=== PATIENT | male | born 1995 ===

== ENCOUNTER 2023-02-21 20:11 | Emergency (ER) | payer OTHER ==
[2023-02-21] MEDS ORDERED: Ibuprofen 600 MG Tab PO ONE (20:47)
[2023-02-21] MEDS ORDERED: Oxymetazoline 0.05% Nasal Spray 30 ML Bottle NAS ONE (20:47)
[2023-02-21] MEDS ORDERED: Acetaminophen 325 MG Tab PO ONE (20:47)
[2023-02-21] MEDS ORDERED: Dexamethasone 4 MG Tab PO ONE (20:47)
== END 2023-02-21 21:14 | disposition home or self-care (01) ==
LOC: MW.ED 20:11
DX: H66.93 Otitis media, unspecified, bilateral (principal); Z88.0 Allergy status to penicillin
CPT/HCPCS: 99282; A9270; J8540; 99283

== ENCOUNTER 2023-03-12 20:39 | Emergency (ER) | payer OTHER ==
[2023-03-12] MEDS ORDERED: Ketorolac 60 MG/2 ML SDV IM ONE (20:54)
[2023-03-12] MEDS ORDERED: Orphenadrine 60 MG/2 ML Inj IM ONE (20:54)
[2023-03-12] MEDS ORDERED: Cyclobenzaprine 10 MG Tab ONE (21:23)
[2023-03-12] MEDS ORDERED: Cyclobenzaprine 10 MG Tab PO ONE (21:24)
== END 2023-03-12 21:45 | disposition home or self-care (01) ==
LOC: MW.ED 20:39
DX: M26.621 Arthralgia of right temporomandibular joint (principal); Z88.0 Allergy status to penicillin; Z79.899 Other long term (current) drug therapy
CPT/HCPCS: 96372; 99283; A9270; J1885